=== PATIENT | female | born 1995 | race Caucasian/White ===

== ENCOUNTER 2022-01-17 09:07 | Emergency (ER) | payer BC ==
[~2022-01-17] VITALS: Ht 160 cm; Wt 83.9 kg
[2022-01-17] MEDS ORDERED: NIRM1TAB PO (09:16)
[2022-01-17] MEDS ORDERED: IBUP-1969 PO (09:16)
--- NOTE | 2022-01-17 09:19 | NUR ---
PT BIB FAMILY FROM [facility] CC SORE THROAT, BODY ACHES AND COUGH, PT STATES TESTED POSITIVE FOR COVID.
--- NOTE | 2022-01-17 09:22 | NUR ---
ER at bedside examining patient.
[2022-01-17 09:24] VITALS: BP_SYST 144
--- NOTE | 2022-01-17 09:30 | NUR ---
Patient given written and verbal discharge instructions and verbalizes understanding. ER MD discussed with patient the results and treatment provided. Patient in stable condition. ID arm band removed. Opportunity for questions provided and answered. Medication side effect fact sheet provided.
[2022-01-17 09:41] VITALS: BP_SYST 144
== END 2022-01-17 09:30 | disposition home or self-care (01) ==
LOC: SED 09:07
DX: U07.1 COVID-19 (principal); J40 Bronchitis, not specified as acute or chronic; R05.9 Cough, unspecified; R09.81 Nasal congestion; Z79.899 Other long term (current) drug therapy
CPT/HCPCS: 99283